=== PATIENT | female | born 1990 | race Caucasian/White ===

== ENCOUNTER 2017-07-25 14:16 | Inpatient (IN) ==
[2017-08-01] MEDS ORDERED: LR 1,000 ML IV SCH (05:30)
[2017-08-01] MEDS ORDERED: CITRIC ACID/SODIUM CITRATE 30ml PO ONE (05:30)
[2017-08-01] MEDS ORDERED: FAMOTIDINE PB 20 MG/50 ML BAG IV ONE (05:30)
[2017-08-01] MEDS ORDERED: CEFAZOLIN PREMIX (MC ONLY) 2 GM/50 ML BAG IV ONE (05:30)
[2017-08-01 05:54] VITALS: BMI 37.5
[2017-08-01] MEDS ORDERED: SCOPOLAMINE 1.5 MG PATCH TD SCH (06:45)
[2017-08-01] MEDS ORDERED: MORPHINE SULFATE PF 5mg/10ml INJ (Duramorph) ONE (06:52)
[2017-08-01] MEDS ORDERED: FentaNYL 100 MCG/2 ML INJECTION ONE (06:53)
--- NOTE | 2017-08-01 06:54 | Anesthesia Preoperative Report ---
Anesthesia Preoperative Record - Date and Time Date: 08/01/17 Preoperative Diagnosis: repeat c section Proposed Procedure: REpeat NPO Since Date: 08/01/17 NPO Since Time: 00:00 Allergies/Adverse Reactions: Allergies Allergy/AdvReac Type Severity Reaction Status Date / Time NKDA Allergy Unknown Uncoded 07/09/17 06:05 - Vital Signs Vital Signs: Respiratory Rate 14 08/01/17 05:54 Blood Pressure 126/66 08/01/17 05:54 Pulse Oximetry 100 08/01/17 05:54 Height and Weight: Height 5 ft 5 in Weight 102.2 kg Body Mass Index 37.5 - Medications Inpatient Medications: Current Medications Lactated Ringer's (Lactated Ringers) 1,000 mls @ 999 mls/hr IV .Q1H1M [facility] Last Admin: 08/01/17 06:04 Dose: 999 mls/hr Scopolamine (Transderm-Scop) 1.5 mg TD Q3D [facility] Stop: 08/01/17 06:46 Last Admin: 08/01/17 06:50 Dose: 1.5 mg Home Medications: Home Medications Medication Instructions Recorded Confirmed Type Multi Tablet 1 tab PO DAILY 07/31/17 07/31/17 History Is Patient on Beta Dick?: No - Medical History Respiratory: DENIES: Asthma, Bronchitis, Chronic Obstructive Pulmonary Disease (COPD), Dyspnea, Orthopnea, Pulmonary Embolism, Pneumonia, Upper Respiratory Infection, Pulmonary Edema, Sleep Apnea, Tuberculosis, Other Cardiovascular: DENIES: Abnormal EKG, Angina, Arrhythmia, Congestive Heart Failure, Coronary Artery Disease, Heart Murmur, Hypertension, Hypotension, High Cholesterol, Myocardial Infarction, Rheumatic Fever, Valvular Heart Disease, Other Gastrointestional: Reports: Gastroesophageal Reflux Disease (with ), Ulcer (hx of), Other ("colon Flare-ups"=blood in stool) Neuro/Musculoskeletal: Denies: HX.MS.OSAR, Back Problems, Cerebrovascular Accident, Depression, Headaches, Loss of Consciousness, Muscle Weakness, Neuromuscular Disorder, Paralysis, Paresthesia, Syncope, Seizures, Other Renal/Endocrine: DENIES: Diabetes Mellitus Type 1, Diabetes Mellitus Type 2, Renal Failure, Dialysis, Thyroid Disease, Weight Loss, Weight Gain, Other Other History: Reports: Now - Surgical History Reproductive Surgery/Treatment: Reports: Section Anesthesia Reactions: Nausea and Vomiting (after ) Hx Family Anesthesia Reaction: No History of Motion Sickness: Yes - Social History Smoking Status: Never smoker Substance Use Type: does not use - Pertinent Findings Laboratory: CBC and BMP 08/01/17 05:49 EKG: Sinus Rhythm - Physical Exam Respiratory Exam: Present: lungs clear, bilateral breath sounds equal Cardiovascular Exam: Present: regular rate and rhythm, no murmur - Airway Assessment Mallampati Score: II TMD: 3 Fingerbreadths Neck Extension: good Overall Assessment: may be difficult intubation - ASA ASA Score: 2 - Plan Anesthesia: Neuroaxial Regional/Trunk Block: Spinal - Discussion Discussion: Discussed risks/options/alternatives of anesthesia and questions answered. Patient consents. Nursing pain assessment noted. Present for Discussion: spouse Attestation Statement: Prior to the delivery of any anesthetic medication, I examined the patient, developed the plan, obtained the patient's consent and discussed the risk and benefits of the procedure with the patient/guardian. - Additional Information Seen by Anesthesia: Yes
[2017-08-01] MEDS ORDERED: ONDANSETRON 4 MG/2 ML INJECTION ONE (06:58)
[2017-08-01] MEDS ORDERED: EPHEDRINE 50mg/ml INJECTION ONE (06:58)
[2017-08-01] MEDS ORDERED: OXYTOCIN BOLUS BAG 30 UNIT/500 ML ML IV SCH (07:00)
[2017-08-01] MEDS ORDERED: CALCIUM CARBONATE Chewable 500mg TABLET PO PRN (09:03)
[2017-08-01] MEDS ORDERED: METOCLOPRAMIDE 10mg/2ml INJECTION IVP PRN (09:03)
[2017-08-01] MEDS ORDERED: SALINE FLUSH 10ml SYRINGE IV PRN (09:03)
[2017-08-01] MEDS ORDERED: HYDROCORTISONE 2.5% CREAM 30gm RECTALLY PRN (09:03)
[2017-08-01] MEDS ORDERED: OXYTOCIN DRIP 30 UNIT/500 ML ML IV SCH (09:03)
[2017-08-01] MEDS ORDERED: DiphenhydrAMINE 25 MG CAPSULE PO PRN (09:03)
[2017-08-01] MEDS ORDERED: SIMETHICONE 80 MG CHEWABLE TABLET PO PRN (09:03)
[2017-08-01] MEDS ORDERED: ONDANSETRON 4 MG/2 ML INJECTION IVP PRN ×2 (09:03→09:25)
[2017-08-01] MEDS ORDERED: D5LR 1,000 ML IV SCH ×2 (09:03→09:15)
[2017-08-01] MEDS ORDERED: ACETAMINOPHEN 500 MG TABLET PO PRN (09:03)
[2017-08-01] MEDS ORDERED: DiphenhydrAMINE 50 MG/ML INJECTION IVP PRN (09:25)
[2017-08-01] MEDS ORDERED: NALOXONE 2 MG/2 ML INJECTION PFS IVP PRN (09:25)
[2017-08-01] MEDS ORDERED: NALOXONE 0.4 MG/ML INJECTION IVP PRN (09:45)
[2017-08-01] MEDS: IBUPROFEN 800 MG TABLET PO PRN ×2 (11:59→20:33)
[2017-08-01] MEDS: SIMETHICONE 80 MG CHEWABLE TABLET PO SCH ×4 (14:33→23:36)
[2017-08-01] MEDS: DOCUSATE CALCIUM 240 MG CAPSULE PO SCH (14:33)
--- NOTE | 2017-08-01 15:19 | Operative Note ---
DATE OF DELIVERY: 08/01/2017 PREOPERATIVE DIAGNOSES 1. 27-year-old white female, G2, P1 at 39.0 weeks gestational age. 2. Previous x 1. POSTOPERATIVE DIAGNOSES 1. Nuchal cord x 1. 2. True knot x 1. 3. Thin lower uterine segment. 4. Midline inferior uterine extension. 5. Male , 9/9 Apgars of 3532 g (7 pounds 12 ounces) ([place]). PROCEDURE: Repeat low transverse section and repair of midline inferior uterine extension. ANESTHESIA: Spinal by Zay Sanchez CRNA. SURGEON: Joe Harry MD INDUSTRIAL AERIAL INSTALLER: Neil Jaramillo, surgical elastic knitter. COMPLICATIONS: There was a thin lower uterine segment. Infant was OP and during delivery there was an inferior tear that was repaired after delivery. DESCRIPTION OF PROCEDURE After adequate spinal anesthesia the patient was prepped and draped in the left lateral decubitus position. A Pfannenstiel skin incision was made with a sharp knife and carried down to the fascia which was incised transversely with the Faria scissors. Rectus fascia was bluntly and sharply dissected off the rectus muscles. Rectus muscles were divided. Peritoneum was isolated, entered and extended cephalad and caudad. Bladder blade was inserted. Bladder was noted to be low enough and with a thin lower uterine segment I chose to make the transverse incision higher than usual in the uterus. This was made and I extended it with my fingers. Then the infant was delivered from the vertex OP position by rotating to OA and then elevating up the head. Infant was bulb suctioned after delivery of the head and then again after delivery of the body. There was a nuchal cord x 1 that was reduced at delivery. There was a true knot x 1 that was identified that was firm but not tight. The was taken to the isolette. Then the placenta was removed manually and was intact. The uterus was externalized and bladder blade was reinserted and examination of the uterus showed the transverse incision and then in the middle of the bottom aspect of the transverse incision an inferior extension into the then lower uterine segment. So essentially by standing back and looking at it, it was T- shaped. It did not, however, extend down to the bladder. I began by repairing the inferior extension with 0-Monocryl in a running, locking fashion and then I used 0-Monocryl in a running, locking fashion to repair the usual incision. There was a little bit of bleeding/leaking from the lower uterine segment incision so I use 3-0 chromic to imbricate it until I achieved hemostasis. A [id number] suture was placed on the right lateral edge of the main incision to complete the hemostasis. Hemostasis was confirmed and then the posterior cul-de-sac was cleaned and the uterus was returned to the abdominal cavity. Then I placed a sheet of Interceed over the top of it. Then the abdomen was closed in layers. Peritoneum was closed using 2-0 Vicryl in a running, nonlocking fashion. Fascia was closed using 0-Vicryl in a running , nonlocking fashion from the lateral aspects medially bilaterally. Skin was closed with a 3-0 Vicryl subcuticular stitch. She had a previous incision that we went through. The 3-0 Vicryl was used in a subcuticular fashion to close the skin with the knot being on the far right edge. EBL was 800 mL. Maternal blood type is B+, rubella is immune and GBS was negative. MTDD
--- NOTE | 2017-08-01 15:47 | Anesthesia Postoperative Note ---
- Date and Time Date: 08/01/17 Time: 15:30 - Status Patient Participated in Evaluation: Patient Participated in Person Vital Signs: Temperature 97.6 F 08/01/17 13:30 Pulse Rate 74 08/01/17 13:30 Respiratory Rate 16 08/01/17 13:30 Blood Pressure 113/65 08/01/17 13:30 Pulse Oximetry 100 08/01/17 13:30 Respiratory Function: Airway Patent, Regular Respirations Cardiovascular Function: Regular Pulse Mental Status: Alert and Oriented Pain Intensity: 2 Hydration: Taking PO Fluids Complications During Recover: None Apparent Post Anesthesia Care Notes: ambulatory without problems - Follow-Up Instructions Instructions: Per Surgeon
--- NOTE | 2017-08-01 17:16 | Progress Note ---
OB PP Progress Note Free Text - Date Date: 08/01/17 - Progress Note Progress Note: vss af hgb stable baby in scn disc c/s and findings q&a-krb
[2017-08-01] MEDS: HYDROCODONE/APAP 5mg/325mg TABLET PO PRN ×2 (19:29→23:37)
[2017-08-02] MEDS: IBUPROFEN 800 MG TABLET PO PRN ×3 (04:26→21:36)
[2017-08-02] MEDS: SIMETHICONE 80 MG CHEWABLE TABLET PO SCH ×3 (09:19→21:46)
[2017-08-02] MEDS: DOCUSATE CALCIUM 240 MG CAPSULE PO SCH (09:19)
[2017-08-02] MEDS: HYDROCODONE/APAP 5mg/325mg TABLET PO PRN ×3 (09:22→23:50)
--- NOTE | 2017-08-02 10:48 | OB/GYN Progress Note ---
OB-PP Progress Note - General PPD1 POD:: POD1 Maternal Group B Strep: Negative Maternal blood type: B+ Maternal Rubella Status: Immune General: Pt in Nusery seeing infant, Breast bumping - Subjective Date: 08/02/17 Lochia: Minimal Pain: controlled Nausea or Vomiting Present: No - Objective Vital Signs: Last Vital Signs Temp 98.3 F 08/02/17 08:15 Pulse 88 08/02/17 08:15 Resp 14 08/02/17 08:15 BP 127/78 08/02/17 08:15 Pulse Ox 99 08/02/17 08:15 Urine Output: good General: alert and oriented Cardiovascular: regular rate,rhythm Respiratory: non-labored Abdomen: fundus firm, non-tender Laboratory: Laboratory Results - last 24 hr 08/01/17 14:33 WBC 13.2 H D RBC 4.00 Hgb 11.6 L Hct 35.5 L MCV 88.8 MCH 29.0 MCHC 32.7 RDW Std Deviation 49.1 Plt Count 159 MPV 10.4 - Assessment Assessment: SP, Repeat C/S - Plan Plan: routine care
[2017-08-03 05:07] VITALS: O2SAT 97
[2017-08-03] MEDS: IBUPROFEN 800 MG TABLET PO PRN ×3 (05:27→22:03)
--- NOTE | 2017-08-03 07:31 | OB/GYN Progress Note ---
OB-PP Progress Note - General PPD2 POD:: POD2 Maternal Group B Strep: Negative Maternal blood type: B+ Maternal Rubella Status: Immune - Subjective Date: 08/03/17 Lochia: Minimal Pain: controlled Voiding: voiding Nausea or Vomiting Present: No - Objective Vital Signs: Last Vital Signs Temp 98.7 F 08/03/17 04:15 Pulse 97 08/03/17 04:15 Resp 20 08/03/17 04:15 BP 119/69 08/03/17 04:15 Pulse Ox 97 08/03/17 04:15 General: alert and oriented Cardiovascular: regular rate,rhythm Respiratory: non-labored Abdomen: fundus firm, non-tender Incision: normal, clean, no erythema Extremities: non-tender - Assessment Assessment: SP, Repeat C/S - Plan Plan: routine care Expected date of discharge: 08/04/17
[2017-08-03] MEDS: DOCUSATE CALCIUM 240 MG CAPSULE PO SCH (08:53)
[2017-08-03] MEDS: SIMETHICONE 80 MG CHEWABLE TABLET PO SCH ×4 (10:01→22:03)
[2017-08-03] MEDS: HYDROCODONE/APAP 5mg/325mg TABLET PO PRN ×2 (10:01→18:03)
[2017-08-04] MEDS: HYDROCODONE/APAP 5mg/325mg TABLET PO PRN (05:00)
[2017-08-04 05:08] VITALS: BP 140/71; PULSE 89; RESP 18; TEMP 98
[2017-08-04] MEDS ORDERED: SCOPOLAMINE PATCH REMOVAL TD SCH (06:30)
[2017-08-04] MEDS: IBUPROFEN 800 MG TABLET PO PRN (07:56)
--- NOTE | 2017-08-04 08:36 | OB/GYN Progress Note ---
OB-PP Progress Note - General PPD3 POD:: POD3 Maternal Group B Strep: Negative Maternal blood type: B+ Maternal Rubella Status: Immune - Subjective Date: 08/04/17 Lochia: Minimal Pain: controlled Voiding: voiding Nausea or Vomiting Present: No - Objective Vital Signs: Last Vital Signs Temp 98.0 F 08/04/17 05:00 Pulse 89 08/04/17 05:00 Resp 18 08/04/17 05:00 BP 140/71 H 08/04/17 05:00 Pulse Ox 97 08/03/17 20:00 General: alert and oriented Cardiovascular: regular rate,rhythm Respiratory: non-labored Abdomen: fundus firm, non-tender Incision: normal, clean, no erythema Extremities: non-tender - Assessment Assessment: SP, Repeat C/S - Plan Plan: routine care, discharge home Expected date of discharge: 08/04/17
== END 2017-08-04 09:10 | disposition home or self-care (01) | DRG 766 ==
LOC: MC 08-01 05:23
PROVIDERS: ADMIT Obstetrics & Gynecology; ATTEND Obstetrics & Gynecology